=== PATIENT | male | born 1955 | race Caucasian/White ===

== ENCOUNTER 2023-08-14 09:32 | Outpatient (OUT) | payer MEDICARE, SELFPAY ==
--- NOTE | 2023-08-14 09:38 | CT_ITS ---
[address] [address] Patient Name: CONNIE UREÑA MRN: [id number] date: 1955 Sex: M Assigned Patient Location: CT Current Patient Location: Accession/Order Number: [id number] Exam Date: 08/14/2023 09:43 Report Date: 08/15/2023 06:33 At the request of: RAYSHAWN DE LEON Procedure: CT lung screening low-dose EXAMINATION: CT lung screening low-dose HISTORY: Cigarette Nicotine Dependence F17.210 COMPARISON: No relevant comparison available. TECHNIQUE: Axial, Coronal, and Sagittal images were created without the administration of IV contrast material. Dose reduction techniques were achieved by using automated exposure control and/or adjustment of mA and/or kV according to patient size and/or use of iterative reconstruction technique. FINDINGS: LUNGS: No visible pulmonary disease. PLEURA: No mass, effusion, or pneumothorax. VASCULATURE: No abnormality. ADAMARIS: No mass or pathologic adenopathy. MEDIASTINUM: No mass or pathologic adenopathy. CARDIAC: No enlargement, pericardial thickening, or pericardial effusion. Coronary Artery calcifications: AORTA: No aneurysm or dissection. CHEST WALL: No mass or axillary adenopathy BONES: No bone lesion or fracture. LIMITED ABDOMEN: Small, nodular liver. Large hiatal hernia. Limited images of the upper abdomen. OTHER: Negative. CT/CT lung screening low-dose IMPRESSION: 1. Lung-RADS Category 1 Negative. No nodules and definitely benign nodules. Continue annual screening with LDCT in 12 months. 2. Nodular liver suggestive of cirrhosis. 3. Large hiatal hernia. Electronically authenticated by: FELICIANO SAM Date: 08/15/2023 06:33
== END 2023-08-14 09:33 | disposition home or self-care (01) ==
LOC: CT 09:32
PROVIDERS: PCP Internal Medicine; Visit Provider Internal Medicine
DX: F17.210 Nicotine dependence, cigarettes, uncomplicated (principal); K44.9 Diaphragmatic hernia without obstruction or gangrene
CPT/HCPCS: 71271

== ENCOUNTER 2023-08-19 09:02 | Outpatient (OUT) | payer MEDICARE, SELFPAY ==
--- NOTE | 2023-08-19 09:05 | ECG_ITS ---
[facility] Test Date: 2023-08-19 Pat Name: Sulaiman Nava Department: Room: - Gender: Male Ems Instructor: : 1955 Requested By: SATHISH DAMON Order Number: [id number] Reading MD: DARIUSZ PETERS Measurements Intervals Boyds Rate: 63 P: 64 MT: 137 QRS: 11 QRSD: 93 T: 38 QT: 401 QTc: 412 Interpretive Statements SINUS RHYTHM WITH SINUS ARRHYTHMIA No previous ECG available for comparison Electronically Signed On 08-19-2023 18:35:42 EDT by DARIUSZ PETERS
[2023-08-19 10:11] LABS: Basophils Percent Auto 0.7 % (0.2-2.0); Eosinophils Absolute Auto 0.1 10^3/uL (0.0-0.7); Eosinophils Percent Auto 1.1 % (0.9-7.0); Hematocrit 40.7 % (42.0-54.0); Immature Granulocytes Abs Auto 0.02 10^3/uL (0.00-0.03); Immature Granulocytes Pct Auto 0.4 % (0.0-0.5); Lymphocytes Absolute Auto 0.9 10^3/uL (1.2-3.8); Lymphocytes Percent Auto 18.6 % (20.5-60.0); Mean Corpuscular HGB Conc 34.4 g/dL (29.9-35.2); Mean Corpuscular Hemoglobin 32.9 pg (25.9-34.0); Mean Corpuscular Volume 95.8 fL (80.0-94.0); Mean Platelet Volume 11.2 fL (9.5-13.5); Monocytes Absolute Auto 0.7 10^3/uL (0.3-0.8); Neutrophils Absolute Auto 2.9 10^3/uL (1.4-6.5); Neutrophils Percent Auto 63.2 % (43.0-75.0); Platelet Count 99 10^3/uL (150-450); Red Blood Count 4.25 10^6/uL (4.70-6.10); Red Cell Distribution Width 13.5 % (11.0-15.0); White Blood Count 4.6 10^3/uL (4.0-11.0)
[2023-08-19 10:18] LABS: Anion Gap 12.1; BUN Creatinine Ratio 8.3; Calcium 9.6 mg/dL (8.5-10.1); Carbon Dioxide 27.9 mmol/L (21.0-32.0); Chloride 100 mmol/L (98-107); Estimated GFR (African America >60 (>=60); Estimated GFR (Non-African Ame >60 (>=60); Glucose 128 mg/dL (74-106); Sodium 136 mmol/L (136-145)
[2023-08-19 10:23] LABS: Alanine Aminotransferase 67 U/L (16-63); Albumin Globulin Ratio 0.6; Albumin Level 3.3 g/dL (3.4-5.0); Alkaline Phosphatase 102 U/L (46-116); Aspartate Amino Transferase 84 U/L (15-37); Bilirubin Direct 0.3 mg/dL (0.0-0.2); Bilirubin Total 0.7 mg/dL (0.2-1.0); Globulin 5.1 g/dL; Total Protein 8.4 g/dL (6.4-8.2)
[2023-08-19 11:01] LABS: INR 1.04; Partial Thromboplastin Time 27.6 sec (22.3-36.2)
== END 2023-08-19 09:03 | disposition home or self-care (01) ==
LOC: PST 09:03
PROVIDERS: PCP Internal Medicine; Visit Provider Otolaryngology
DX: Z01.810 Encounter for preprocedural cardiovascular examination (principal); Z01.812 Encounter for preprocedural laboratory examination; H69.93 Unspecified Eustachian tube disorder, bilateral; H65.93 Unspecified nonsuppurative otitis media, bilateral; D64.9 Anemia, unspecified; K76.9 Liver disease, unspecified
CPT/HCPCS: 80048; 80076; 85025; 85610; 85730; 93005

== ENCOUNTER 2023-08-20 17:48 | Emergency (ER) | payer MEDICARE, SELFPAY ==
[2023-08-20 17:52] VITALS: BP 152/86; PULSE 71; TEMP 36.4; O2SAT 97; BMI 23.6
--- NOTE | 2023-08-20 17:58 | PC.NURSE ---
PT CONCERNED FOR BLOOD CLOT IN LUE R/T TO [facility] FROM LAB DRAW YESTERDAY
--- NOTE | 2023-08-20 18:07 | ED.GENADUL1 ---
HPI HPI - General Adult General Chief complaint: Extremity Problem, Nontraumatic Stated complaint: CONCERN POSS BLOOD CLOT ARM Time Seen by Provider: 08/20/23 17:54 Source: patient Mode of arrival: walk-in Limitations: other Limitations comment: HEARING LOSS. History of Present Illness HPI narrative: 67-year-old male to the emergency department chief complaint of bruise on his left AC after a blood draw. Patient reports that he was phlebotomized yesterday. He reports that they used a small butterfly needle however he has never had a bruise like this before afterwards. His is concerned it may be a blood clot. He has no complaints. There is no pain at the site. There is no arm swelling. Related Data Home Medications ?Medication ?Instructions ?Recorded ?Confirmed albuterol sulfate 90 mcg/actuation 2 inh inhalation Q6H PRN shortness 08/19/23 08/19/23 aerosol inhaler of breath or wheezing amlodipine 5 mg tablet 5 mg PO DAILY 08/19/23 08/19/23 omeprazole 20 mg capsule,delayed 20 mg PO DAILY 08/19/23 08/19/23 release Allergies Allergy/AdvReac Type Severity Reaction Status Date / Time No Known Drug Allergies Allergy Verified 08/19/23 09:17 Opioid HPI Opioid Management Most Recent Opioid Data: No Data to Display Review of Systems ROS Status of ROS 10 or more systems reviewed and unremarkable except as noted in history and below [facility] Medical History (Updated 08/20/23 @ 18:03 by Joshua Bridges MD) Hearing loss ?H91.90 - Unspecified hearing loss, unspecified ear (ICD-10) Alcohol dependence ?F10.20 - Alcohol dependence, uncomplicated (ICD-10) Poor historian ?Z78.9 - Other specified health status (ICD-10) Hiatal hernia ?K44.9 - Diaphragmatic hernia without obstruction or gangrene (ICD-10) Osteoarthritis ?M19.90 - Unspecified osteoarthritis, unspecified site (ICD-10) Anemia ?D64.9 - Anemia, unspecified (ICD-10) Insomnia ?G47.00 - Insomnia, unspecified (ICD-10) Anxiety ?F41.9 - Anxiety disorder, unspecified (ICD-10) Depression ?F32.A - Depression, unspecified (ICD-10) Bronchiectasis ?J47.9 - Bronchiectasis, uncomplicated (ICD-10) Panlobular emphysema ?J43.1 - Panlobular emphysema (ICD-10) Allergic rhinitis ?J30.9 - Allergic rhinitis, unspecified (ICD-10) Nasal obstruction ?J34.89 - Other specified disorders of nose and nasal sinuses (ICD-10) Chronic pansinusitis ?J32.4 - Chronic pansinusitis (ICD-10) Hepatitis C ?B19.20 - Unspecified viral hepatitis C without hepatic coma (ICD-10) Cirrhosis ?K74.60 - Unspecified cirrhosis of liver (ICD-10) Dysfunction of both eustachian tubes ?H69.93 - Unspecified Eustachian tube disorder, bilateral (ICD-10) GERD (gastroesophageal reflux disease) ?K21.9 - Gastro-esophageal reflux disease without esophagitis (ICD-10) Hypertension ?I10 - Essential (primary) hypertension (ICD-10) Edentulous ?K08.109 - Complete loss of teeth, unspecified cause, unspecified class (ICD-10) Cataract ?H26.9 - Unspecified cataract (ICD-10) Surgical History (Updated 08/19/23 @ 09:28 by Kika Montenegro NP) S/P cataract extraction and insertion of intraocular lens ?Z98.49 - Cataract extraction status, unspecified eye (ICD-10) ?Z96.1 - Presence of intraocular lens (ICD-10) History of cholecystectomy ?Z90.49 - Acquired absence of other specified parts of digestive tract (ICD-10) History of appendectomy ?Z90.49 - Acquired absence of other specified parts of digestive tract (ICD-10) History of tonsillectomy ?Z90.89 - Acquired absence of other organs (ICD-10) Family History (Updated 08/19/23 @ 09:28 by Kika Montenegro NP) Other Family history of Alzheimer's disease Family history of heart disease Social History (Updated 08/19/23 @ 09:20 by Kika Montenegro NP) Within the past year, how often did you have a drink containing alcohol: 4 or more times a week Within the past year, how many standard drinks containing alcohol did you have on a typical day: 10 or more Smoking status: Current every day smoker What tobacco products do you use: cigarettes Packs per day: 1 Years smoked: 50 Smoking pack-years: 50.00 Non-prescribed substance use: denies use Highest level of school completed/degree received: high school graduate Exam Narrative Exam Narrative: VITALS: I have reviewed the triage vital signs. GENERAL: Well developed, well appearing adult in no acute distress. NEURO: Alert and oriented. Moves all extremities. Face is symmetric and expressive. EYES: PERRL. No scleral icterus or conjunctival injection. No discharge. HENT: Normocephalic, atraumatic. Hearing is grossly intact. Nares grossly patent and without discharge. Mucous membranes moist. NECK: No JVD. Patient moves neck without restriction. EXTREMITIES: Symmetric muscle bulk. No joint swelling. No clubbing, cyanosis, or deformity. SKIN: Warm and dry. Normal turgor. No rash or lesions appreciated. Quarter sized area of ecchymosis to the left AC. No tenderness or swelling throughout the arm. PSYCH: Mood, affect, and interaction is appropriate to the setting. Constitutional Vital Signs, click to edit/add: Last Vital Signs Temp 97.6 F 08/20/23 17:52 Pulse 08/20/23 17:52 Resp 08/20/23 17:52 BP 152/86 H 08/20/23 17:52 Pulse Ox 97 08/20/23 17:52 O2 Del Method Room Air 08/20/23 17:52 Course Vital Signs Vital signs: Vital Signs Temperature 97.6 F 08/20/23 17:52 Pulse Rate 08/20/23 17:52 Respiratory Rate 18 08/20/23 17:52 Blood Pressure 152/86 H 08/20/23 17:52 Pulse Oximetry 97 08/20/23 17:52 Oxygen Delivery Method Room Air 08/20/23 17:52 Temperature 97.6 F 08/20/23 17:52 Pulse Rate 08/20/23 17:52 Respiratory Rate 18 08/20/23 17:52 Blood Pressure 152/86 H 08/20/23 17:52 Pulse Oximetry 97 08/20/23 17:52 Oxygen Delivery Method Room Air 08/20/23 17:52 Medical Decision Making MDM Narrative Medical decision making narrative: Well-appearing 67-year-old male worried about a DVT in his arm due to a blood draw. Small area of ecchymosis. There is no evidence of DVT. Discussed expectant management. Return precautions were discussed. All questions were answered. Patient was discharged home. Discharge Plan Discharge Stand Alone Forms: Portal Instructions Chief Complaint: Extremity Problem, Nontraumatic Clinical Impression: Ecchymosis Patient Disposition: Home, Self-Care Time of Disposition Decision: 18:03 Condition: Good Prescriptions / Home Meds: No Action albuterol sulfate 90 mcg/actuation HFA aerosol inhaler 2 inh INHALATION Q6H PRN (Reason: shortness of breath or wheezing) amlodipine 5 mg tablet 5 mg PO DAILY omeprazole 20 mg capsule,delayed release(DR/EC) 20 mg PO DAILY Print Language: Romanian Instructions: Ecchymosis (ED) Referrals: RAYSHAWN DE LEON [Primary Care Provider] - 1 week
== END 2023-08-20 18:08 | disposition home or self-care (01) ==
PROVIDERS: Emergency Provider Student in an Organized Health Care Education/Training Program; PCP Internal Medicine
DX: R58 Hemorrhage, not elsewhere classified (principal); F17.210 Nicotine dependence, cigarettes, uncomplicated
CPT/HCPCS: 99281

== ENCOUNTER 2023-09-01 10:58 | Day surgery (SDC) | payer MEDICARE, SELFPAY ==
[2023-08-19 09:43] VITALS: BP 168/92; PULSE 70; TEMP 36.4; O2SAT 96; BMI 23.6
[2023-09-01] VITALS (12 sets, daily range): BP systolic 122–172; BP diastolic 65–86; PULSE 71–93; TEMP 36.1–36.6; O2SAT 90–98; BMI 23.9
--- NOTE | 2023-09-01 | OP_ITS ---
OPERATION DATE: 09/01/2023 SURGEON: Gayla Ignacio M.D. PREOPERATIVE DIAGNOSIS: Bilateral mixed hearing loss and eustachian tube dysfunction. POSTOPERATIVE DIAGNOSIS: Bilateral mixed hearing loss and eustachian tube dysfunction. PROCEDURE: Bilateral myringotomy and tubes and nasal endoscopy. ANESTHESIA: General endotracheal COMPLICATIONS: None. FINDINGS: Bilateral severe tympanic membrane retraction with bilateral stapediopexy and left incus erosion. No significant nasopharyngeal pathology evident on nasal endoscopy. INDICATIONS: This 67-year-old man presented with evidence of chronic eustachian tube dysfunction. Because of the severity of his tympanic membrane retraction, decision was made to proceed directly to placement of tympanostomy tubes. Nasal endoscopy was performed to ensure that there was no nasopharyngeal carcinoma or lymphoma that may have precipitated his eustachian tube dysfunction. PROCEDURE: Patient identified in the holding area and taken back to the OR where he was placed in the supine position. After induction of general endotracheal anesthesia, Afrin soaked pledgets were placed in each side of the nose. The right ear was then approached with the otomicroscope and an anterior radial myringotomy was performed. A modified Abhilash?s T-tube was folded and inserted in the middle ear using microdissection. Attention was turned to the left ear and the same procedure performed. Attention was then turned to the nose. The Afrin pledgets were removed and a zero degree nasal endoscope was used to visualize the nasopharynx bilaterally and no significant pathology was identified. Patient was then awakened and taken to the recovery room in good condition. DION
--- OUTSIDE RECORDS SUMMARY | 2023-09-01 11:13 | XMS_ITS | CCD ---
Author Organization [facility] Care Team Providers Care Content Producer Name Role Phone HALEY, DR TABARES Admitting Unavailable HALEY, DR TABARES Attending Unavailable HALEY, DR TABARES Primary Care Unavailable HALEY, DR TABARES Consulting Unavailable KACI, DR MARIE Delgado Consulting Unavailable HALEY, DR TABARES Admitting Unavailable HALEY, DR TABARES Attending Unavailable HALEY, DR TABARES Primary Care Unavailable HALEY, DR TABARES Consulting Unavailable BETHEBCAROLINA, DR FELICIANO Aviles Consulting Unavailable LEVI MALDONADO Attending Unavailable ERICA, LEVI Medina Attending Unavailable RAYSHAWN DE LEON Attending Unavailable HALEY, RAYSHAWN Gregory Attending Unavailable RAYSHAWN DE LEON Attending Unavailable TIMMISSATHISH Attending Unavailable LUISSARAH Attending Unavailable ERICA, LEVI Medina Attending Unavailable Problems Active Problems Problem Classification Problem Date Documented Da te Episodic/Chronic Other lower respiratory disease (4 sources) Other nonspecific abnormal finding of lung field; Translations: [OTH NONSPECIFIC ABN FIND LNG FIELD] Onset: 11-26-2021 Episodic Substance-related disorders (4 sources) Nicotine dependence, cigarettes, uncomplicated; Translations: [NICOTINE DEPEND CIGARETTES UNCOMP] Onset: 08-19-2021 Chronic Past or Other Problems Problem Classification Problem Date Documented Da te Episodic/Chronic Other screening for suspected conditions (not mental disorders or infectious disease) (1 source) Encounter for screening for malignant neoplasm of respiratory organs; Translations: [ENC SCREEN MALIG NEOPLASM RESP ORGN] Onset: 08-21-2021 Episodic Results Test Name Value Interpretation Reference Range Facil ity CREATININEon 11-26-2021 Creatinine [Mass/Vol] 1.11 mg/dL Normal 0.70-1.30 [facility] Comment on above: Performed By: #### C PRICE #### [facility] [address] [place], [place] [address] Dr. Joao Servin EGFR-AF [place]LANDER >60 Normal >=60 [facility] Comment on above: Performed By: #### C PRICE #### [facility] [address] [place], [place] [address] Dr. Joao Servin EGFR-NON AF [place]ER >60 Normal >=60 [facility] Comment on above: Performed By: #### C PRICE #### [facility] [address] [place], [place] [address] CHEST W CONon 11-26-2021 CT CHEST W CON EXAMINATION: CT CHES T W CON HISTORY: Lung field abnormal COMPARISON: CT chest 08/19/2021 TECHNIQUE: Multi-planar CT images were created with IV contrast. Axial, Coronal, and Sagittal images. Dose reduction techniques were achieved by using automated exposure control and/or adjustment of mA and/or kV according to patient size and/or use of iterative reconstruction technique. FINDINGS: LUNGS: Clear to previously seen right basilar infiltrates. Mild bronchiectasis and mild emphysematous changes. No new or suspicious nodules. PLEURA: No mass, effusion, or pneumothorax. VASCULATURE: No abnormality. ADAMARIS: No mass or adenopathy. MEDIASTINUM: No mass or adenopathy. CARDIAC: No enlargement, pericardial thickening, or significant calcification. AORTA: No aneurysm or dissection. CHEST WALL: No mass or axillary adenopathy. BONES: No bone lesion or fracture. LIMITED ABDOMEN: Marked nodularity of the liver suggestive of cirrhosis. Large hiatal hernia. Limited images of the upper abdomen. OTHER: Negative. IMPRESSION: 1. Clearing of previously seen pulmonary infiltrates. No suspicious pulmonary findings. 2. Mild bronchiectasis and mild chronic emphysematous changes. 3. Markedly nodular liver suggestive of cirrhosis. Electronically authenticated by: FELICIANO SAM Date: 2021-11-26 20:09 Normal [facility] CT LUNG CANCER SCREENINGon 0 08-19-2021 CT LUNG CANCER SCREENING EXAMINATION: CT LUNG CANCER SCREENING HISTORY: Tobacco dependence caused by cigarettes COMPARISON: No relevant comparison available. TECHNIQUE: Axial, Coronal, and Sagittal images were created without the administration of IV contrast material. Dose reduction techniques were achieved by using automated exposure control and/or adjustment of mA and/or kV according to patient size and/or use of iterative reconstruction technique. FINDINGS: LUNGS: Mild centrilobular and paraseptal emphysema. Focal infiltrate identified in the medial basilar segment of the right lower lobe measuring 2.3 x 1.2 cm axial image 1:30. A few scattered punctate pulmonary nodules, stable. No new significant pulmonary nodule or mass. PLEURA: No mass, effusion, or pneumothorax. VASCULATURE: No abnormality. ADAMARIS: No mass or pathologic adenopathy. MEDIASTINUM: No mass or pathologic adenopathy. CARDIAC: No enlargement or pericardial effusion. Mild coronary atherosclerosis AORTA: No aneurysm or dissection. CHEST WALL: No mass or axillary adenopathy BONES: No bone lesion or fracture. LIMITED ABDOMEN: Small nodular liver suggesting cirrhosis. Large hiatal hernia. OTHER: Negative. IMPRESSION: New focal 2.3 cm infiltrate medial basilar segment of the right lower lobe. Short interval follow-up in 3 months is recommended to document stability/resolution Cirrhosis Large hiatal hernia LUNG SCREENING: Lung-RADS Category 3- Probably benign. Probably benign finding(s)- short term follow up suggested; includes nodules with a low likelihood of becoming a clinically active cancer. Six month LDCT. Electronically authenticated by: MARIE CLEMONS Date: 2021-08-19 14:25 Normal [facility] Coding Summary.on 05-03-2019 Coding Summary. CODING DATE: 05/03/2019 FINAL [facility] STATUS: Home (Routine DC) PAYOR: Medicare APC DESCRIPTION 5522 Level 2 Imaging without Contrast ADMIT DX: REASON FOR VISIT DX: J32.4 Chronic pansinusitis FINAL DX: PRINCIPAL: J32.4 Chronic pansinusitis SECONDARY: PYMT PROC APC STAT DESCRIPTION DOCTOR NAME DATE NOTE: The code number assigned matches the documented diagnosis and / or procedure in the patient's chart. However, the narrative phrase printed from the coding software may appear abbreviated, or result in slightly different terminology. Coded By: Liana Moraes CphT Date Saved: 05/03/2019 09:11 am Normal [facility] CT Maxillofacial w/o Contras ton 05-02-2019 CT Maxillofacial w/o Contrast Exam Date/Time: 05/02/2019 11:10 EDT Reason for Exam: CHRONIC SINUSITIS Report IMPRESSION: MINIMAL MUCOSAL THICKENING. NO EVIDENCE OF ACUTE SINUSITIS. CLINICAL HISTORY: CHRONIC SINUSITIS. COMMENT: Unenhanced images were obtained. There is minimal mucosal thickening involving both maxillary and ethmoid sinuses. Both frontal sinuses are small, especially the right. The paranasal sinuses are otherwise aerated and unremarkable. No fluid level is noted. There is no bone destruction. The ostiomeatal complexes of both maxillary sinuses are aerated and clear. The bony nasal septum is midline. Of incidental note, at the level of the middle nasal turbinates, there is focal expansion of the right and left nasal cavities laterally, on a developmental basis. There is mild hypertrophy or swelling of the left inferior nasal turbinate. The nasal cavities are otherwise unremarkable. All CT scans at this facility use dose modulation, iterative reconstruction, and/or weight based dosing when appropriate to reduce radiation dose to as low as reasonably achievable. FINAL REPORT Dictated: 05/02/2019 11:43 am Narendra Downing M.D. Signed (Electronic Signature): 05/02/2019 11:43 am Signed by: Narendra Downing M.D. Transcribed by: KATELYNN Technologist: Jo AMARO [facility] Encounters Encounter Date Encounter Type Care Provider Facility Start: 08-27-2023 End: 08-27-2023 ambulatory LEVI MALDONADO Not Available Start: 08-12-2023 End: 08-12-2023 ambulatory SARAH SMITH Not Available Start: 08-12-2023 End: 08-12-2023 ambulatory SATHISH Vaughn MARISOL Not Available Start: 08-10-2023 End: 08-10-2023 ambulatory RAYSHAWN DE LEON Not Available Start: 07-22-2023 End: 07-22-2023 ambulatory RAYSHAWN DE LEON Not Available Start: 07-15-2023 End: 07-15-2023 ambulatory RAYSHAWN DE LEON Not Available Start: 03-05-2023 End: 03-05-2023 ambulatory LEVI MALDONADO Not Available Start: 02-17-2023 End: 02-17-2023 ambulatory LEVI MALDONADO Not Available Start: 11-26-2021 End: 11-27-[address] RAYSHAWN DE LEON Facility:[facility] Start: 08-19-2021 End: [address] RAYSHAWN DE LEON Facility:[facility] Payers Date Payer Category Payer Unknown [id number] 1955 Unknown [id number] 2.16.84 [id number] 1955 Unknown [id number] 2.16.84 [id number] 1955 Unknown [id number] 2.16.84 [id number] 1955 Unknown [id number] 2.16.84 [id number] 1955 Unknown [id number] 2.16.84 [id number] 1955 Unknown [id number] 2.16.84 [id number] 1955 Unknown [id number] 2.16.84 [id number] 1955 Unknown [id number] 2.16.84 [id number] 1955 Unknown [id number] 2.16.84 [id number] 1955 Unknown [id number] 2.16.84 [id number] Summary Purpose Family History No Family History Records FoundNo Family History Records FoundNo Family History Records Found Advance Directives No Advanced Directives Records FoundNo Advanced Directives Records FoundNo Advanced Directives Records Found Additional Source Comments (unrecognized sect ion and content) No Status Records FoundNo Status Records FoundNo Status Records Found INFORMATION SOURCE (unrecogn ized section and content) DATE CREATED AUTHOR 06/25/2019 [facility] DATE CREATED AUTHOR AUTHOR'S ORGANIZ ATION 11/30/2021 [facility] DATE CREATED AUTHOR AUTHOR'S ORGANIZ ATION 08/31/2023 [facility] FOR RECORDS PERTAINING TO PATIENTS WHO ARE OR HAVE BEEN ENROLLED IN A CHEMICAL DEPENDENCY/SUBSTANCEABUSE PROGRAM, SOME INFORMATION MAY BE OMITTED. This clinical summary was aggregated from multiple sources. Caution should be exercised in using it in the provision of clinical care. This summary normalizes information from multiple sources, and as a consequence, information in this document may materially change the coding, format and clinical context of patient data. In addition, data may be omitted in some cases. CLINICAL DECISIONS SHOULD BE BASED ON THE PRIMARY CLINICAL RECORDS. [facility]. provides no warranty or guarantee of the accuracy or completeness of information in this document.
[2023-09-01] MEDS: LACTATED RINGER'S SOLUTION 1,000 ML 50 ML IV (11:28)
[2023-09-01] MEDS: OXYMETAZOLINE HCL 0.05% NASAL SPRAY 30 SPRAY NS (12:37)
--- NOTE | 2023-09-01 13:15 | PC.NURSE ---
PATIENT COUGHING SINCE HE ARRIVED TO PACU. BREATHNG TREATMENT WAS ORDERED AND HE IS CURRENTLY TAKING BREATHING TREATMENT.
[2023-09-01] MEDS: ALBUTEROL SULFATE 2.5 MG/3 ML VIAL NEB IH (13:30)
== END 2023-09-01 13:59 | disposition home or self-care (01) ==
PROVIDERS: PCP Internal Medicine; Visit Provider Otolaryngology
PROC: (CPT 31231; principal; 2023-09-01 12:00)
PROC: (CPT 31231; 2023-09-01 12:00)
DX: H69.93 Unspecified Eustachian tube disorder, bilateral (principal); H65.93 Unspecified nonsuppurative otitis media, bilateral; H90.6 Mixed conductive and sensorineural hearing loss, bilateral; Z90.49 Acquired absence of other specified parts of digestive tract; F17.210 Nicotine dependence, cigarettes, uncomplicated; I10 Essential (primary) hypertension; K21.9 Gastro-esophageal reflux disease without esophagitis; K74.60 Unspecified cirrhosis of liver; B19.20 Unspecified viral hepatitis C without hepatic coma; K44.9 Diaphragmatic hernia without obstruction or gangrene; M19.90 Unspecified osteoarthritis, unspecified site
CPT/HCPCS: 31231; 69436; 36415; 94640; J2405; J2704; J3010

== ENCOUNTER 2024-05-28 09:04 | Outpatient (OUT) | payer MEDICARE, SELFPAY ==
--- NOTE | 2024-05-28 | US_ITS ---
The [address] [address] Patient Name: CONNIE UREÑA MRN: [id number] date: 1955 Sex: M Assigned Patient Location: US Current Patient Location: Accession/Order Number: [id number] Exam Date: 05/30/2024 09:42 Report Date: 05/30/2024 09:44 At the request of: LEVI MALDONADO Procedure: US right upper quadrant LIMITED ABDOMINAL ULTRASOUND WITH ASSESSMENT OF RIGHT UPPER QUADRANT HISTORY: Elevated liver enzymes COMPARISON: None Negative ultrasound Evans's sign reported. COMMON BILE DUCT: Normal caliber. No intraluminal abnormality. LIVER CONTOUR: Cirrhosis. LIVER PARENCHYMA: Hepatic steatosis HEPATIC LESION: None INTRAHEPATIC BILIARY DUCTAL DILATATION No ductal dilatation identified. Cholecystectomy Pancreas: Limited assessment of pancreatic tail. No gross abnormality PORTAL VEIN: Normal blood flow. Liver size: Normal No RIGHT hydronephrosis identified. US/US right upper quadrant IMPRESSION: Liver cirrhosis. Hepatic steatosis. No biliary duct dilatation. Cholecystectomy Impression dictated by: Gary Alex M.D.05/30/2024 9:44 AM Dictation Location: [place] [address] Electronically authenticated by: [id number] Y Date: 05/30/2024 09:44
--- OUTSIDE RECORDS SUMMARY | 2024-05-28 09:07 | XMS_ITS | CCD ---
Author Organization [facility] Inform ion Partnership [facility] Care Team Providers Care Washateria Attendant Name Role Phone HALEY, DR TABARES Admitting Unavailable HALEY, DR TABARES Attending Unavailable HALEY, DR TABARES Primary Care Unavailable HALEY, DR TABARES Consulting Unavailable KACI, DR MARIE Delgado Consulting Unavailable HALEY, DR TABARES Admitting Unavailable HALEY, DR TABARES Attending Unavailable HALEY, DR TABARES Primary Care Unavailable HALEY, DR TABARES Consulting Unavailable FLACO, DR FELICIANO Aviles Consulting Unavailable Jeevna Bertrand MD Unavailable Jeevan Bertrand MD Primary Care Provider [phone] Joesph CONTACT LENS POLISHER, Lala Unavailable Mobile CONTACT LENS POLISHER, Anamika Unavailable Unavailable LEVI RAMOS Attending Unavailable JEEVAN BERTRAND Attending Unavailable JEEVAN BERTRAND Attending Unavailable JEEVAN BERTRAND Attending Unavailable GAYLA DAMON Attending Unavailable SARAH SMITH Attending Unavailable LEVI RAMOS Attending Unavailable GAYLA DAMON Attending Unavailable Medications Current Medications Medication Drug Class(es) Dates Sig (Normalized) Sig (Original) [id number] 200 actuat albuterol 0.09 mg/actuat metered dose inhaler (7 sources) beta2-Adrenergic Agonist Start: 08-10-2023 take 1 puff(s) by inhalation every four hours for wheezing albuterol HFA 90 mcg/act inhaler Indications: Panlobular emphysema (CMS/HCC) Inhale 1 puff every 4 (four) hours if needed for wheezing or shortness of breath 18 g 2 08/10/2023 Active amLODIPine 5 mg oral tablet (10 sources) Dihydropyridine Calcium Channel Chandler Start: 10-09-2022 End: 05-04-2025 take 1 tablet by mouth once daily amLODIPine (Norvasc) 5 MG tablet Indications: Hypertension, unspecified type (CMS/HCC) Take 1 tablet (5 mg) by mouth Daily 90 tablet 3 05/04/2024 05/04/2025 Active cloNIDine hydrochloride 0.1 mg oral tablet (9 sources) Central alpha-2 Adrenergic Agonist Start: 04-27-2023 End: 05-04-2025 take 1 tablet by mouth every hour for hypertension cloNIDine (Catapres) 0.1 MG tablet Indications: Hypertension, unspecified type (CMS/HCC) Take 1 tablet (0.1 mg) by mouth every 1 (one) hour if needed for high blood pressure (SBP > 170) 60 tablet 11 05/04/2024 05/04/2025 Active ofloxacin 3 mg/ml otic solution (2 sources) Quinolone Antimicrobial Start: 09-30-2023 End: 10-10-2023 ofloxacin (Floxin) 0.3 % otic solution Indications: ETD (Eustachian tube dysfunction), bilateral Administer 4 drops into each ear in the morning and 4 drops before bedtime. Do all this for 10 days. 10 mL 09/30/2023 10/10/2023 Active phenylephrine hydrochloride 10 mg/ml nasal solution (7 sources) alpha-1 Adrenergic Agonist Start: 07-22-2023 phenylephrine (Neel-Synephrine) 1 % nasal spray Indications: Non-recurrent acute suppurative otitis media of both ears without spontaneous rupture of tympanic membranes Administer 2 sprays into each nostril every 4 (four) hours if needed for congestion for up to 25 days Do not use for more than 3 days. 15 mL 1 07/22/2023 Active Problems Active Problems Problem Classification Problem Date Documented Date Episodic/Chronic Anxiety disorders (9 sources) Mixed anxiety and depressive disorder; Translations: [Other specified anxiety disorders] Onset: 09-11-2022 09-11-2022 Chronic Chronic obstructive pulmonary disease and bronchiectasis (16 sources) Bronchiectasis; Translations: [Bronchiectasis, uncomplicated] Onset: 09-11-2022 09-11-2022 Chronic Deficiency and other anemia (2 sources) Iron deficiency anemia; Translations: [Other iron deficiency anemias] 05-04-2024 Episodic Esophageal disorders (9 sources) Gastroesophageal reflux disease; Translations: [Gastro-esophageal reflux disease without esophagitis] Onset: 01-26-2008 09-11-2022 Chronic Essential hypertension (12 sources) Hypertensive disorder; Translations: [Essential (primary) hypertension] Onset: 10-06-2022 10-22-2023 Chronic Hepatitis (9 sources) Chronic hepatitis C; Translations: [Chronic viral hepatitis C] Onset: 09-11-2022 09-11-2022 Chronic Miscellaneous mental health disorders (2 sources) Primary insomnia; Translations: [Primary insomnia] 05-04-2024 Chronic Osteoarthritis (9 sources) Degenerative joint disease involving multiple joints; Translations: [Polyosteoarthritis, unspecified] Onset: 01-26-2008 09-11-2022 Chronic Other liver diseases (11 sources) Cirrhosis of liver; Translations: [Unspecified cirrhosis of liver] Onset: 08-22-2011 09-11-2022 Chronic Other liver diseases (2 sources) Elevated liver enzymes level; Translations: [Abnormal levels of other serum enzymes] 05-04-2024 Episodic Other lower respiratory disease (4 sources) Other nonspecific abnormal finding of lung field; Translations: [OTH NONSPECIFIC ABN FIND LNG FIELD] Onset: 11-26-2021 Episodic Other screening for suspected conditions (not mental disorders or infectious disease) (7 sources) Encounter for screening for malignant neoplasm of respiratory organs; Translations: [Patient encounter status] Onset: 08-21-2021 05-04-2024 Episodic Other upper respiratory disease (7 sources) Allergic rhinitis; Translations: [Other allergic rhinitis] Onset: 09-11-2022 09-11-2022 Chronic Other upper respiratory infections (7 sources) Chronic pansinusitis; Translations: [Chronic pansinusitis] Onset: 09-11-2022 09-11-2022 Chronic Retinal detachments; defects; vascular occlusion; and retinopathy (9 sources) Cystoid macular degeneration, left eye; Translations: [Cystoid macular degeneration] Onset: 09-11-2022 09-11-2022 Chronic Substance-related disorders (15 sources) Nicotine dependence, cigarettes, uncomplicated; Translations: [Nicotine dependence] Onset: 08-19-2021 Chronic Past or Other Problems Problem Classification Problem Date Documented Da te Episodic/Chronic Deficiency and other anemia (7 sources) Anemia; Translations: [Anemia, unspecified] Onset: 08-21-2010 09-11-2022 Episodic Other upper respiratory disease (7 sources) Nasal obstruction; Translations: [Other specified disorders of nose and nasal sinuses] Onset: 09-11-2022 09-11-2022 Episodic Otitis media and related conditions (16 sources) Dysfunction of bilateral eustachian tubes; Translations: [Unspecified Eustachian tube disorder, bilateral] Onset: 08-12-2023 08-12-2023 Episodic Residual codes; unclassified (7 sources) Insomnia; Translations: [Insomnia, unspecified] Onset: 09-11-2022 09-11-2022 Episodic Results Test Name Value Interpretation Reference Range Facil ity CREATININEon 11-26-2021 Creatinine [Mass/Vol] 1.11 mg/dL Normal 0.70-1.30 [facility] Comment on above: Performed By: #### C PRICE #### [facility] [address] [place] [address] Dr. Joao Servin EGFR-AF VENEZUELAN >60 Normal >=60 [facility] Comment on above: Performed By: #### C PRICE #### [facility] [address] [place] [address] Dr. Joao Servin EGFR-NON AF VENEZUELAN >60 Normal >=60 [facility] Comment on above: Performed By: #### C PRICE #### [facility] [address] [place] [address] CHEST W CONon [...] by: FELICIANO SAM Date: 2021-11-26 20:09 Normal [facility] CT LUNG CANCER SCREENINGon 0 08-19-2021 CT [...] by: MARIE CLEMONS Date: 2021-08-19 14:25 Normal [facility] Coding Summary.on 05-03-2019 Coding Summary. CODING DATE: 05/03/2019 FINAL [facility] STATUS: Home (Routine DC) PAYOR: Medicare [...] Moraes CphT Date Saved: 05/03/2019 09:[address] [facility] [address] Maxillofacial w/o Contras ton 05-02-2019 [...] M.D. Transcribed by: KATELYNN Technologist: Jo AMARO [facility] Vital Signs Date Time Vital Sign Value Performing Clinician Ashleigh mei 05-04-2024 11:20-040 Body height 170.2 cm Levi Ramos NP Work Phone: [facility] 05-04-2024 11:20-0400 Body mass index (BMI) [Ratio] 24.18 kg/m2 Levi Ramos NP Work Phone: [facility] 05-04-2024 11:20-0400 Body weight 70.03 kg Levi Ramos ETHNOLOGY TEACHER Work Phone: [facility] 05-04-2024 11:20-0400 Diastolic blood pressure 82 mm[Hg] Levi Ramos ETHNOLOGY TEACHER Work Phone: [facility] 05-04-2024 11:20-0400 Heart rate 91 /min Levi Ramos ETHNOLOGY TEACHER Work Phone: [facility] 05-04-2024 11:20-0400 Respiratory rate 17 /min Levi Ramos ETHNOLOGY TEACHER Work Phone: [facility] 05-04-2024 11:20-0400 SaO2% (BldA) [Mass fraction] 97 % Levi Ramos ETHNOLOGY TEACHER Work Phone: [facility] 05-04-2024 11:20-0400 Systolic blood pressure 138 mm[Hg] Levi Ramos ETHNOLOGY TEACHER Work Phone: [facility] 09-30-2023 08:59-0400 Body height 170.2 cm Gayla Damon MD Work Phone: [facility] 09-30-2023 08:59-0400 Body mass index (BMI) [Ratio] 24.28 kg/m2 Gayla Damon MD Work Phone: [facility] 09-30-2023 08:59-0400 Body weight 70.31 kg Gayla Damon MD Work Phone: [facility] 09-30-2023 08:59-0400 Diastolic blood pressure 92 mm[Hg] Gayla Damon MD Work Phone: [facility] 09-30-2023 08:59-0400 Systolic blood pressure 161 mm[Hg] Gayla Damon MD Work Phone: [facility] Encounters Encounter Date Encounter Type Care Provider Facility Start: 05-04-2024 End: 05-04-2024 Bamboo flowsheet Levi Ramos ETHNOLOGY TEACHER Work Phone: [facility] Start: 05-04-2024 End: 05-04-2024 Bamboo flowsheet Levi Ramos ETHNOLOGY TEACHER Work Phone: [facility] Start: 05-04-2024 End: 05-04-2024 Assay of hemosiderin, quant Levi Ramos ETHNOLOGY TEACHER Work Phone: [facility] Start: 05-04-2024 End: 05-04-2024 Patient encounter procedure Levi Ramos ETHNOLOGY TEACHER Work Phone: [facility] Comment on above: Medicare annual well [facility] visit, subsequent (Primary Dx); Other iron deficiency anemia; Screening for prostate cancer; Primary hypertension (CMS/HCC); Screening for lipid disorders; Hypertension, unspecified type (CMS/HCC); Primary insomnia; Panlobular emphysema (CMS/HCC); Chronic hepatitis C without hepatic coma (CMS/HCC); 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); Gastroesophageal reflux disease without esophagitis; Generalized OA; Cigarette nicotine dependence without complication; Cystoid macular degeneration of left eye; Depression with anxiety; Routine general medical examination at health care facility; Unspecified cirrhosis of liver (CMS/HCC); Screening for colon cancer; Elevated liver enzymes Start: 05-04-2024 End: 05-04-2024 ambulatory LEVI RAMOS Not Available Start: 10-22-2023 End: 10-22-2023 Harsha Bertrand MD Work Phone: [facility] Comment on above: Hypertension, unspec ified type (CMS/HCC) Start: 09-30-2023 End: 09-30-2023 Bamboo flowsheet Gayla Damon MD Work Phone: [facility] Start: 09-30-2023 End: 09-30-2023 Bamboo flowsheet Gayla Damon MD Work Phone: [facility] Start: 09-30-2023 End: 09-30-2023 Office outpatient visit 25 minutes Gayla Damon MD Work Phone: [facility] Comment on above: ETD (Eustachian tube dysfunction), bilateral (Primary Dx) Start: 09-30-2023 End: 09-30-2023 ambulatory GAYLA H TIMMIS Not Available Start: 08-27-2023 End: 08-27-2023 ambulatory LEVI RAMOS Not Available Start: 08-12-2023 End: 08-12-2023 ambulatory SARAH SMITH Not Available Start: 08-12-2023 End: 08-12-2023 ambulatory GAYLA DAMON Not Available Start: 08-10-2023 End: 08-10-2023 ambulatory JEEVAN BERTRAND Not Available Start: 07-22-2023 End: 07-22-2023 ambulatory JEEVAN BERTRAND Not Available Start: 07-15-2023 End: 07-15-2023 ambulatory JEEVAN BERTRAND Not Available Start: 11-26-2021 End: 11-27-[address] JEEVAN BERTRAND Facility:[facility] Start: 08-19-2021 End: [address] JEEVAN BERTRAND Facility:[facility] Plan of Treatment Date Care Activity Detail Author Start: 05-04-2025 Medicare Annual Well ness (AWV) Medicare Annual Wellness (AWV) [facility] Start: 04-04-2025 Screening for malign ant neoplasm of colon [facility] Start: 08-09-2024 Medicare Annual Well ness (AWV) Medicare Annual Wellness (AWV) [facility] Start: 05-04-2024 End: 05-04-2025 CBC panel - Blood by Automated count CBC Lab Routine Other iron deficiency anemia Expected: 05/04/2024 (Approximate), Expires: 05/04/2025 [facility] Comment on above: Expected: 05/04/2024 (Approximate), Expires: 05/04/2025 Start: 05-04-2024 End: 05-04-2025 Comprehensive metabolic 2000 panel - Serum or Plasma Comprehensive metabolic panel Lab Routine Primary hypertension (CMS/HCC) Expected: 05/04/2024 (Approximate), Expires: 05/04/2025 [facility] Comment on above: Expected: 05/04/2024 (Approximate), Expires: 05/04/2025 Start: 05-04-2024 End: 05-04-2025 CT Chest for screening WO contrast CT lung screening low dose Imaging Routine Cigarette nicotine dependence without complication Expected: 05/04/2024, Expires: 05/04/2025 [facility] Comment on above: Expected: 05/04/2024 , Expires: 05/04/2025 Start: 05-04-2024 End: 05-04-2025 Lipid 1996 panel - Serum or Plasma Lipid panel Lab Routine Screening for lipid disorders Expected: 05/04/2024 (Approximate), Expires: 05/04/2025 [facility] Work Phone: Comment on above: Expected: 05/04/2024 (Approximate), Expires: 05/04/2025 Start: 05-04-2024 End: 05-04-2025 Noninvasive colorectal cancer DNA and occult blood screening [Presence] in Stool Cologuard colon cancer screening Lab Routine Screening for colon cancer Expected: 05/04/2024 (Approximate), Expires: 05/04/2025 [facility] Comment on above: Expected: 05/04/2024 (Approximate), Expires: 05/04/2025 Start: 05-04-2024 End: 05-04-2025 Prostate specific Ag [Mass/volume] in Serum or Plasma PSA Lab Routine Screening for prostate cancer Expected: 05/04/2024 (Approximate), Expires: 05/04/2025 [facility] Comment on above: Expected: 05/04/2024 (Approximate), Expires: 05/04/2025 Start: 05-04-2024 End: 05-04-2025 US Abdomen limited US LIVER Imaging Routine Chronic hepatitis C without hepatic coma (CMS/HCC) Unspecified cirrhosis of liver (CMS/HCC) Elevated liver enzymes Expected: 05/04/2024, Expires: 05/04/2025 [facility] Comment on above: Expected: 05/04/2024 , Expires: 05/04/2025 Start: 05-04-2024 End: 05-04-2024 Patient encounter procedure 05/04/2024 11:00 AM EDT Office Visit [facility] [address] [facility] [address] [place] [address] Levi Ramos NP [address] [facility] [address] [place] [address] Arrived [facility] Comment on above: Arrived Start: 12-02-2023 Pneumococcal Vaccine : 65+ Years (1 of 2 - PCV) Pneumococcal Vaccine: 65+ Years (1 of 2 - PCV) [facility] Comment on above: Postponed from 08/20 (Patient Refused) Start: 12-02-2023 End: 12-02-2023 Patient encounter procedure 12/02/2023 10:20 AM EDT Office Visit [facility] [address] [facility] [address] [place] [address] Gayla Damon MD [address] [facility] [address] [place] [address] [facility] Start: 10-11-2023 Influenza vaccination Influenza Vacc ine (#1) [facility] Start: 09-30-2023 End: 09-30-2023 Patient encounter procedure 09/30/2023 9:00 AM EDT Office Visit [facility] [address] [facility] [address] [place] [address] Gayla Damon MD [address] [facility] [address] [place] [address] Arrived [facility] Comment on above: Arrived Start: 1961 Pneumococcal Vaccine : 65+ Years (1 of 2 - PCV) Pneumococcal Vaccine: 65+ Years (1 of 2 - PCV) [facility] Start: 1955 Screening for malign ant neoplasm of colon [facility] Payers Date Payer Category Payer Medicare [employer] MEDIC[employer] ADVANTAGE [facility] MEDICARE ADVANTAGE [id number] 2021-Present [address] [place] [address] [id number] 2021 Medicare (Managed Care) [facility] AD[facility] [id number] 1959 Unknown [id number] 1954 Unknown [id number] .[id number] 1954 Unknown [id number] .[id number] 1954 Unknown [id number] .[id number] 1954 Unknown [id number] .[id number] 1954 Unknown [id number] .[id number] 1954 Unknown [id number] .[id number] 1954 Unknown [id number] .[id number] 1954 Unknown [id number] .[id number] 1954 Unknown [id number] .[id number] 1954 Unknown [id number] .[id number] Social History Date Type Detail Facility Start: 08-09-1993 Tobacco smoking status ILIS Smokes tobacco daily [facility] Start: 08-09-1993 History of tobacco use Cigarette Smoker [facility] Start: 08-10-2023 End: 05-04-2024 Cigarettes smoked current (pack per day) - Reported 0.4 [facility] Work Phone: Start: 08-10-2023 Tobacco use and exposure Smokeless tobacco non-user [facility] Start: 09-30-2023 End: 05-04-2024 Alcoholic beverage intake Current drinker of alcohol (finding) [facility] Start: 09-24-2023 End: 05-04-2024 Alcohol Use Disorder Identification Test - Consumption [AUDIT-C] [facility] Work Phone: How often to you hav e a drink containing alcohol? 2-3 time sa week [facility] Work Phone: How many standard dr inks containing alcohol do you have on a typical day? 3 or 4 [facility] How often do you hav e 6 or more drinks on 1 occasion? Weekly [facility] Start: 03-05-2023 Alcohol Comment caffeine intake: 1-2 cups per day coffee, soda [facility] Start: 1955 Sex assigned at Not on file [facility] History of Present illness Narrative 05-04-2024 Levi Ramos NP - 05/04/2024 11:00 AM EDT Note Date & Type Note Facility 05-04-2024 History of Presen t illness Narrative Images from the original note were not included. Subjective : Chief Complaint: Sulaiman Nava is an 68 y.o. male here for an annual wellness visit. I have reviewed and reconciled the history and medication list with the patient today. Current Outpatient Medications Medication Sig Dispense Refill albuterol HFA 90 mcg/act inhaler Inhale 1 puff every 4 (four) hours if needed for wheezing or shortness of breath 18 g 2 amLODIPine (Norvasc) 5 MG tablet Take 1 tablet (5 mg) by mouth Daily 90 tablet 3 cloNIDine (Catapres) 0.1 MG tablet Take 1 tablet (0.1 mg) by mouth every 1 (one) hour if needed for high blood pressure (SBP > 170) 60 tablet 11 phenylephrine (Neel-Synephrine) 1 % nasal spray Administer 2 sprays into each nostril every 4 (four) hours if needed for congestion for up to 25 days Do not use for more than 3 days. 15 mL 1 No current facility-administered medications for this visit. Review of Systems Constitutional: Positive for fatigue. HENT: Negative. Eyes: Negative. Respiratory: Negative. Cardiovascular: Negative. Gastrointestinal: Negative. Genitourinary: Negative. Musculoskeletal: Positive for arthralgias. Skin: Negative. Neurological: Negative. Psychiatric/Behavioral: Negative. List of current healthcare providers: Patient Care Team: Jeevan Bertrand MD as PCP - General (Internal Medicine) Jeevan Bertrand MD as PCP - Patrick Paz LPN Medicare Annual Visit Over the past 2 weeks, how often have you been bothered by any of the following problems? Little interest or pleasure in doing things: Not at all Feeling down, depressed, or hopeless: Not at all Patient Health Questionnaire-2 Score: 0 Baxter Fall Risk History of Falling, Immediate or Within 3 Months: No Health Risk Assessment Form Do you need help eating, bathing, using the toilet, dressing, or getting around your home?: No Can you prepare your own meals?: Yes Can you do your own housework without help?: Yes Can you shop for groceries or clothes without help?: Yes Do you exercise for about 20 minutes 3 or more days a week?: Yes How confident are you that you can control and manage most of your health problems?: Very confident Can you mange your money, credit cards and accounts, pay bills and taxes?: Yes Cognitive Screening Three Word Registration: Pallavi Caballero Chair Pain Assessment Pain Score: 3 Advance Care Planning Do you have a living will?: Yes Do you have a medical power of attorney general?: Yes Objective : BP 138/82 Pulse 91 Resp 17 Ht 5' 7 Wt 154 lb 6.4 oz SpO2 97% BMI 24.18 kg/m No results found. Physical Exam Vitals reviewed. Constitutional: Appearance: Normal appearance. HENT: Head: Normocephalic. Nose: Nose normal. Mouth/Throat: Mouth: Mucous membranes are moist. Pharynx: Oropharynx is clear. Eyes: Conjunctiva/sclera: Conjunctivae normal. Cardiovascular: Rate and Rhythm: Normal rate and regular rhythm. Pulmonary: Effort: Pulmonary effort is normal. Breath sounds: Normal breath sounds. Abdominal: General: Bowel sounds are normal. Palpations: Abdomen is soft. Musculoskeletal: Cervical back: Neck supple. Skin: General: Skin is warm and dry. Neurological: General: No focal deficit present. Mental Status: He is alert and oriented to person, place, and time. Psychiatric: Mood and Affect: Mood normal. Behavior: Behavior normal. Assessment/Plan : The following health maintenance schedule was reviewed with the patient and provided in printed form in the after visit summary: Health Maintenance Topic Date Due Pneumococcal Vaccine: 65+ Years (1 of 2 - PCV) Never done Influenza Vaccine (1) Never done Colorectal Cancer Screening 04/04/2025 Medicare Annual Wellness (AWV) 05/04/2025 Advance Care Planning Encourage pt to have living will and DPOA 1. Other iron deficiency anemia Await lab - CBC; Future - CBC 2. Screening for prostate cancer Await lab - PSA; Future - PSA 3. Primary hypertension (CMS/HCC) Patient's blood pressure is currently well controlled. Continue with current medications and I will continue to monitor. Goal BP remains less than 130/80. - Comprehensive metabolic panel; Future - Comprehensive metabolic panel 4. Screening for lipid disorders Await lab - Lipid panel; Future - Lipid panel 5. Hypertension, unspecified type (CMS/HCC) Patient's blood pressure is currently well controlled. Continue with current medications and I will continue to monitor. Goal BP remains less than 130/80. - cloNIDine (Catapres) 0.1 MG tablet; Take 1 tablet (0.1 mg) by mouth every 1 (one) hour if needed for high blood pressure (SBP > 170) Dispense: 60 tablet; Refill: 11 - amLODIPine (Norvasc) 5 MG tablet; Take 1 tablet (5 mg) by mouth Daily Dispense: 90 tablet; Refill: 3 6. Primary insomnia Discussed sleep hygiene with the patient. Encouraged patient to try to go to bed at the same time every night and wake up at the same time each morning. Also encouraged patient to use the bed for sleep and intimacy only. Avoid stimulating activities before bed, i.e. use of electronic devices, watching TV. Avoid exercise within 4 hours of going to bed. Avoid caffeine within 6 hours of going to bed. Keep bedroom cool and dark. Avoid nicotine and alcohol. 7. Panlobular emphysema (CMS/HCC) This is a chronic medical condition that is stable since last assessment. No changes in treatment are suggested at this time. 8. Chronic hepatitis C without hepatic coma (CMS/HCC) This is a chronic medical condition that is stable since last assessment. No changes in treatment are suggested at this time. - US LIVER; Future - US LIVER 9. 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 No changes in treatment are suggested at this time. 10. Gastroesophageal reflux disease without esophagitis GERD discussed with the patient. Pt educated regarding avoiding high acid food triggers such as caffeine products, fruits high in acid, spicy foods, and tomato based products. Advsied to avoid all NSAIDS medications, i.e. Motrin, Aleve. Ok to use Tylenol prn. Encouraged pt to avoid laying down immediately after meals. 11. Generalized OA This is a chronic medical condition that is stable since last assessment. No changes in treatment are suggested at this time. 12. Cigarette nicotine dependence without complication Discussed smoking cessation with the patient. Encouraged patient to cut back and soon quit smoking. Health risks of smoking, and benefits of quitting reviewed with the patient. - CT lung screening low dose; Future 13. Cystoid macular degeneration of left eye This is a chronic medical condition that is stable since last assessment. No changes in treatment are suggested at this time. 14. Depression with anxiety Medication as directed. Verbalizes understanding of the need to be seen in the ER for suicidal/homicidal ideation, excessive stress, elevated blood pressure or palpitations. Pt offers understanding of treatment plan. I discussed the side effects of the medications described and to seek medical care if they arise. Discussed stress mgmt strategies, social support and importance of healthy diet, exercise and regular sleep habits. Advised on relaxation methods to decrease anxiety and depression. 15. Medicare annual wellness visit, subsequent (Primary) Reviewed all relevant preventative screenings with the patient in detail. Medicare Wellness form completed and will be scanned into patient's chart. All needed testing was ordered. Will continue with yearly Medicare Wellness exams. 16. Routine general medical examination at [facility] care facility Reviewed all relevant preventative screenings with the patient in detail. Medicare Wellness form completed and will be scanned into patient's chart. All needed testing was ordered. Will continue with yearly Medicare Wellness exams. 17. Unspecified cirrhosis of liver (CMS/HCC) Await results of ultrasound - US LIVER; Future - US LIVER 18. Screening for colon cancer Await results - Cologuard colon cancer screening; Future - Cologuard colon cancer screening 19. Elevated liver enzymes Await results of ultrasound - US LIVER; Future - US LIVER Orders Placed This Encounter Procedures Lipid panel Standing Status: Future Number of Occurrences: 1 Standing Expiration Date: 05/04/2025 Order Specific Question: Print requisition? Answer: No Comprehensive metabolic panel Standing Status: Future Number of Occurrences: 1 Standing Expiration Date: 05/04/2025 Order Specific Question: Print requisition? Answer: No PSA Standing Status: Future Number of Occurrences: 1 Standing Expiration Date: 05/04/2025 Order Specific Question: Print requisition? Answer: No CBC Standing Status: Future Number of Occurrences: 1 Standing Expiration Date: 05/04/2025 Order Specific Question: Print requisition? Answer: No Electronically signed by Levi Ramos NP on May 04, 2024 documented in this encounter [facility] Telephone encounter Note 10-22-2023 Telephone Encounter - Nereida Castro - 10/22/2023 1:33 PM EDT Note Date & Type Note Facility 10-22-2023 Telephone encount er Note amLODIPine (Norvasc) 5 MG tablet [facility] Note 10-22-2023 Telephone Encounter - Nereida Castro - 10/22/2023 1:33 PM EDT Note Date & Type Note Facility 10-22-2023 Miscellaneous Notes Formattin g of this note might be different from the original. amLODIPine (Norvasc) 5 MG tablet [facility] documented in this encounter [facility] History of Present illness Narrative 09-30-2023 Gayla Damon MD - 09/30/2023 9:00 AM EDT Note Date & Type Note Facility 09-30-2023 History of Presen t illness Narrative Subjective Patient ID: Sulaiman Nava is a 68 y.o. male who presents for Post-op (Sp BMT, Nasal Endo @ [facility] on 08/31) Pt notes some popping pedro, and that though improved, he still feels his balance is off. indicates this is related to drinking Family History Problem Relation Name Age of Onset Mental illness Mother Hypertension Mother Heart disease Mother Diabetes Other Hypertension Other Stroke Other Mental illness Other Active Ambulatory Problems Diagnosis Date Noted Anemia 08/21/2010 Bronchiectasis (CMS/HCC) 09/11/2022 Chronic hepatitis C without hepatic coma (CMS/HCC) 09/11/2022 Chronic pansinusitis 09/11/2022 Cigarette nicotine dependence without complication 09/11/2022 Cirrhosis of liver (CMS/HCC) 08/22/2011 Cystoid macular degeneration of left eye 09/11/2022 Depression with anxiety 09/11/2022 Esophageal reflux 01/26/2008 Generalized OA 01/26/2008 Insomnia 09/11/2022 Nasal obstruction 09/11/2022 Non-seasonal allergic rhinitis 09/11/2022 Panlobular emphysema ([facility]/HCC) 09/11/2022 Primary hypertension ([facility]/HCC) 10/06/2022 ETD (Eustachian tube dysfunction), bilateral 08/12/2023 OME (otitis media with effusion), bilateral 08/12/2023 Resolved Ambulatory Problems Diagnosis Date Noted No Resolved Ambulatory Problems Past Medical History: Diagnosis Date Cataract Chronic sinusitis Macular degeneration Past Surgical History: Procedure Laterality Date APPENDECTOMY CHOLECYSTECTOMY EYE SURGERY Bilateral 12/19/2020 Lens implant in eye MYRINGOTOMY W/ TUBES Bilateral 09/01/2023 BMT -Timmis @ [facility] NASAL ENDOSCOPY 09/01/2023 Timmis @ [facility] TONSILLECTOMY No Known Allergies Current Outpatient Medications on File Prior to Visit Medication Sig Dispense Refill albuterol HFA 90 mcg/act inhaler Inhale 1 puff every 4 (four) hours if needed for wheezing or shortness of breath 18 g 2 amLODIPine (Norvasc) 5 MG tablet Take 1 tablet (5 mg) by mouth in the morning. 90 tablet 3 cloNIDine (Catapres) 0.1 MG tablet Take 1 tablet (0.1 mg) by mouth every 1 (one) hour if needed for high blood pressure (SBP > 170) 60 tablet 11 phenylephrine (Neel-Synephrine) 1 % nasal spray Administer 2 sprays into each nostril every 4 (four) hours if needed for congestion for up to 25 days Do not use for more than 3 days. 15 mL 1 No current facility-administered medications on file prior to visit. Objective Last Recorded Vitals Vitals: 09/30/23 0859 BP: (!) 161/92 ENT Physical Exam Ear Ear comments: Pedro TIP&P, dry. Dried blood at base Assessment/Plan Diagnoses and all orders for this visit: ETD (Eustachian tube dysfunction), bilateral Floxin to soften crusts documented in this encounter [facility] Evaluation note Note Date & Type Note Facility Evaluation note Diagnosis Hypertension, unspecified type (CMS/HCC) documented in this encounter [facility] Evaluation note Note Date & Type Note Facility Evaluation note Diagnosis ETD (Eustachian tube dysfunction), bilateral- Primary documented in this encounter [facility] Evaluation note Note Date & Type Note Facility Evaluation note Diagnosis Medicare annual wellness visit, subsequent- Primary Other iron deficiency anemia Screening for prostate cancer Special screening for malignant neoplasm of prostate Primary hypertension (CMS/HCC) Unspecified essential hypertension Screening for lipid disorders Hypertension, unspecified type (CMS/HCC) Primary insomnia Persistent disorder of initiating or maintaining sleep Panlobular emphysema (CMS/HCC) Other emphysema Chronic hepatitis C without hepatic coma (CMS/HCC) 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) Gastroesophageal reflux disease without esophagitis Esophageal reflux Generalized OA Cigarette nicotine dependence without complication Cystoid macular degeneration of left eye Depression with anxiety Dysthymic disorder Routine general medical examination at health care facility Routine general medical examination at a health care facility Unspecified cirrhosis of liver (CMS/HCC) Screening for colon cancer Special screening for malignant neoplasms, colon Elevated liver enzymes Other nonspecific abnormal serum enzyme levels documented in this encounter [facility] Summary Purpose Family History No Family History Records FoundNo Family History Records FoundNo Family History Records Found Advance Directives No Advanced Directives Records FoundNo Advanced Directives Records FoundNo Advanced Directives Records Found Additional Source Comments (unrecognized sect ion and content) No Status Records FoundNo Status Records FoundNo Status Records Found INFORMATION SOURCE (unrecogn ized section and content) DATE CREATED AUTHOR 06/25/2019 [facility] DATE CREATED AUTHOR AUTHOR'S ORGANIZ ATION 11/30/2021 [facility] DATE CREATED AUTHOR AUTHOR'S ORGANIZ ATION 05/05/2024 [facility] EPIC Care Teams (unrecognized sec tion and content) Washateria Attendant Relationship Specialty Start Date End Date Jeevan Bertrand MD [address] [place] [address] PCP - Patrick HORAN 02/10/21 Jeevan Bertrand MD [address] [place] [address] PCP - General Internal Medicine 06/17/22Thursday, Lala, CONTACT [employer]ER [address] [place] [address] Licensed Practical Nurse Family Medicine 08/24/23 Washateria Attendant Relationship Specialty Start Date End Date Jeevan Bertrand MD [address] [place] [address] PCP - Patrick HORAN 02/10/21 Jeevan Bertrand MD [address] [place] [address] PCP - General Internal Medicine 06/17/22Thursday, Lala, CONTACT LENS POLISHER [address] [place] [address] Licensed Practical Nurse Family Medicine 08/24/23 Washateria Attendant Relationship Specialty Start Date End Date Jeevan Bertrand MD [address] [place] [address] PCP - Patrick HORAN 02/10/21 Jeevan Bertrand MD [address] [place] [address] PCP - General Internal Medicine 06/17/22Thursday, Lala, CONTACT LENS POLISHER [address] [place] [address] Licensed Practical Nurse Family Medicine 08/24/23 Washateria Attendant Relationship Specialty Start Date End Date Jeevan Bertrand MD [address] [place] [address] PCP - Patrick HORAN 02/10/21 Jeevan Bertrand MD [address] [facility] [address] [place] [address] PCP - General Internal Medicine 06/17/22 Anamika Paz LPN 04/29/24 Washateria Attendant Relationship Specialty Start Date End Date Jeevan Bertrand MD [address] [facility] [address] [place] [address] PCP - Patrick HORAN 02/10/21 Jeevan Bertrand MD [address] [facility] [address] [place] [address] PCP - General Internal Medicine 06/17/22 Anamika Paz LPN 04/29/24 Reason for Visit (unrecogniz ed section and content) Reason Comments Post-op Sp BMT, Nasal Endo @ [facility] on 08/31 FOR RECORDS PERTAINING TO PATIENTS WHO ARE [...] BE BASED ON THE PRIMARY CLINICAL RECORDS. [email or web address] provides no warranty or guarantee of the accuracy or completeness of information in this document.
== END 2024-05-28 09:05 | disposition home or self-care (01) ==
LOC: US 09:04
PROVIDERS: PCP Internal Medicine; Visit Provider Nurse Practitioner Family
DX: R74.8 Abnormal levels of other serum enzymes (principal); K74.60 Unspecified cirrhosis of liver; K76.0 Fatty (change of) liver, not elsewhere classified; Z90.49 Acquired absence of other specified parts of digestive tract
CPT/HCPCS: 76705

== ENCOUNTER 2024-09-01 09:59 | Outpatient (OUT) | payer MEDICARE, SELFPAY ==
--- NOTE | 2024-09-01 10:13 | CT_ITS ---
[address] [address] Patient Name: CONNIE UREÑA MRN: [id number] date: 1955 Sex: M Assigned Patient Location: CT Current Patient Location: CT Accession/Order Number: [id number] Exam Date: 09/01/2024 10:32 Report Date: 09/01/2024 10:35 At the request of: LEVI MALDONADO Procedure: CT lung screening low-dose CT CHEST WITHOUT CONTRAST, LOW DOSE SCREENING: CLINICAL DATA: A 69-year old current smoker COMPARISON: Lung screening CT 08/15/2023 TECHNIQUE: Noncontrast axial CT scan images of the chest were obtained under the low dose screening CT protocol. Coronal and sagittal reconstructed images were also submitted. FINDINGS: Mediastinum : Suboptimal evaluation due to low-dose technique. Thoracic aorta appears normal in caliber. Pulmonary trunk appears nondilated. No pericardial effusion. No lymphadenopathy. The esophagus is grossly unremarkable. Moderate size hiatal hernia. Lungs: No focal consolidation, pneumothorax or pleural effusion. Trachea and distal airways appear patent. Diffuse bronchial wall thickening. Emphysema. No suspicious noncalcified pulmonary nodule or mass. Upper abdomen: Partially visualized cirrhotic liver. Bony thorax and chest wall: Soft tissues surrounding the chest wall demonstrate no acute findings. Osseous structures demonstrate degenerative change. CT/CT lung screening low-dose IMPRESSION: NO SUSPICIOUS PULMONARY NODULE. LUNG - RADS Version 1.0 Assessment: Category 1, Negative (No nodules and definitely benign nodules). Management: Continue annual lung screening with LDCT in 12 months. Impression dictated by: Teto Alexander Jr., D.O. 09/01/2024 10:35 AM Dictation Location: [place] [address] Electronically authenticated by: [id number] Y Date: 09/01/2024 10:35
--- OUTSIDE RECORDS SUMMARY | 2024-09-01 10:13 | XMS_ITS | CCD ---
Author Organization [facility] Inform ion Partnership [facility] Care Team Providers Care Sand Drier Name Role Phone HALEY, DR TABARES Admitting Unavailable HALEY, DR TABARES Attending Unavailable HALEY, DR TABARES Primary Care Unavailable HALEY, DR TABARES Consulting Unavailable KACI, DR MARIE Delgado Consulting Unavailable HALEY, DR TABARES Admitting Unavailable HALEY, DR TABARES Attending Unavailable HALEY, DR TABARES Primary Care Unavailable HALEY, DR TABARES Consulting Unavailable FLACO, DR FELICIANO Aviles Consulting Unavailable Jeevan Bertrand MD Unavailable Jeevan Bertrand MD Primary Care Provider [phone] Joesph CONCAVER, Lala Unavailable Mercer CONCAVER, Anamika Unavailable Unavailable LEVI RAMOS Attending Unavailable JEEVAN BERTRAND Attending Unavailable JEEVAN BERTRAND Attending Unavailable JEEVAN BERTRAND Attending Unavailable GAYLA DAMON Attending Unavailable SARAH SMITH Attending Unavailable LEVI RAMOS Attending Unavailable GAYLA DAMON Attending Unavailable Medications Current Medications Medication Drug Class(es) Dates Sig (Normalized) Sig (Original) [id number] 200 actuat albuterol 0.09 mg/actuat metered dose inhaler (8 sources) beta2-Adrenergic Agonist Start: 08-10-2023 take 1 puff(s) by inhalation every four hours for wheezing albuterol HFA 90 mcg/act inhaler Indications: Panlobular emphysema (CMS/HCC) Inhale 1 puff every 4 (four) hours if needed for wheezing or shortness of breath 18 g 2 08/10/2023 Active amLODIPine 5 mg oral tablet (11 sources) Dihydropyridine Calcium Channel Chandler Start: 10-09-2022 End: 05-04-2025 take 1 tablet by mouth once daily amLODIPine (Norvasc) 5 MG tablet Indications: Hypertension, unspecified type (CMS/HCC) Take 1 tablet (5 mg) by mouth Daily 90 tablet 3 05/04/2024 05/04/2025 Active cloNIDine hydrochloride 0.1 mg oral tablet (10 sources) Central alpha-2 Adrenergic Agonist Start: 04-27-2023 [...] Active phenylephrine hydrochloride 10 mg/ml nasal solution (8 sources) alpha-1 Adrenergic Agonist Start: 07-22-2023 phenylephrine [...] Problem Date Documented Date Episodic/Chronic Anxiety disorders (10 sources) Mixed anxiety and depressive disorder; Translations: [Other specified anxiety disorders] Onset: 09-11-2022 09-11-2022 Chronic Chronic obstructive pulmonary disease and bronchiectasis (18 sources) Bronchiectasis; Translations: [Bronchiectasis, uncomplicated] Onset: 09-11-2022 09-11-2022 Chronic Deficiency and other anemia (2 sources) Iron deficiency anemia; Translations: [Other iron deficiency anemias] 05-04-2024 Episodic Esophageal disorders (10 sources) Gastroesophageal reflux disease; Translations: [Gastro-esophageal reflux disease without esophagitis] Onset: 01-26-2008 09-11-2022 Chronic Essential hypertension (13 sources) Hypertensive disorder; Translations: [Essential (primary) hypertension] Onset: 10-06-2022 10-22-2023 Chronic Hepatitis (10 sources) Chronic hepatitis C; Translations: [Chronic viral hepatitis C] Onset: 09-11-2022 09-11-2022 Chronic Miscellaneous mental health disorders (2 sources) Primary insomnia; Translations: [Primary insomnia] 05-04-2024 Chronic Osteoarthritis (10 sources) Degenerative joint disease involving multiple joints; Translations: [Polyosteoarthritis, unspecified] Onset: 01-26-2008 09-11-2022 Chronic Other liver diseases (12 sources) Cirrhosis of liver; Translations: [Unspecified cirrhosis [...] 08-21-2021 05-04-2024 Episodic Other upper respiratory disease (8 sources) Allergic rhinitis; Translations: [Other allergic rhinitis] Onset: 09-11-2022 09-11-2022 Chronic Other upper respiratory infections (8 sources) Chronic pansinusitis; Translations: [Chronic pansinusitis] Onset: 09-11-2022 09-11-2022 Chronic Retinal detachments; defects; vascular occlusion; and retinopathy (10 sources) Cystoid macular degeneration, left eye; Translations: [Cystoid macular degeneration] Onset: 09-11-2022 09-11-2022 Chronic Substance-related disorders (16 sources) Nicotine dependence, cigarettes, uncomplicated; Translations: [Nicotine dependence] Onset: 08-19-2021 Chronic Past or Other Problems Problem Classification Problem Date Documented Da te Episodic/Chronic Deficiency and other anemia (8 sources) Anemia; Translations: [Anemia, unspecified] Onset: 08-21-2010 09-11-2022 Episodic Other upper respiratory disease (8 sources) Nasal obstruction; Translations: [Other specified disorders of nose and nasal sinuses] Onset: 09-11-2022 09-11-2022 Episodic Otitis media and related conditions (18 sources) Dysfunction of bilateral eustachian tubes; Translations: [Unspecified Eustachian tube disorder, bilateral] Onset: 08-12-2023 08-12-2023 Episodic Residual codes; unclassified (8 sources) Insomnia; Translations: [Insomnia, unspecified] Onset: 09-11-2022 09-11-2022 Episodic Results Test Name Value Interpretation Reference Range Facility [place] [address] Ultrasound Report Signed Patient: CONNIE NAVA MR#: [id number] : 1955 Acct:[id number] Age/Sex: 68 / M ADM Date: 05/28/24 Loc: US Attending Dr: LEVI RAMOS Ordering Physician: LEVI RAMOS Date of Service: 05/28/24 Procedure(s): US right upper quadrant Accession Number(s): [id number] cc: JEEVAN BERTRAND ; LEVI RAMOS [place] [id number] Patient Name: CONNIE NAVA MRN: [id number] date: 1955 Sex: M Assigned Patient Location: US Current Patient Location: Accession/Order Number: [id number] Exam Date: 05/30/2024 09:42 Report Date: 05/30/2024 09:44 At the request of: LEVI RAMOS Procedure: US right upper quadrant LIMITED ABDOMINAL ULTRASOUND WITH ASSESSMENT OF RIGHT UPPER QUADRANT HISTORY: Elevated liver enzymes COMPARISON: None Negative ultrasound Evans's sign reported. COMMON BILE DUCT: Normal caliber. No intraluminal abnormality. LIVER CONTOUR: Cirrhosis. LIVER PARENCHYMA: Hepatic steatosis HEPATIC LESION: None INTRAHEPATIC BILIARY DUCTAL DILATATION No ductal dilatation identified. Cholecystectomy Pancreas: Limited assessment of pancreatic tail. No gross abnormality PORTAL VEIN: Normal blood flow. Liver size: Normal No RIGHT hydronephrosis identified. US/US right upper quadrant IMPRESSION: Liver cirrhosis. Hepatic steatosis. No biliary duct dilatation. Cholecystectomy Impression dictated by: Gary Alex M.D.05/30/2024 9:44 AM Dictation Location: RADIO-PC-23 Electronically authenticated by: [id number] Y Date: 05/30/2024 09:44 Dictated By: Gary Alex D.O. Signed By: 05/30/2447 DD/ TD/TT: Diabetic Educator: [facility] Radiology, Radiologist, - 05/30/2024 [place] [address] Ultrasound Report Signed Patient: CONNIE NAVA MR#: [id number] : 1955 Acct:[id number] Age/Sex: 68 / M ADM Date: 05/28/24 Loc: US Attending Dr: LEVI RAMOS Ordering Physician: LEVI RAMOS Date of Service: 05/28/24 Procedure(s): US right upper quadrant Accession Number(s): [id number] cc: JEEVAN BERTRAND ; LEVI RAMOS [place] [address] Patient Name: CONNIE NAVA MRN: [facility]:[id number] date: 1955 Sex: M Assigned Patient Location: US Current Patient Location: Accession/Order Number: [id number] Exam Date: 05/30/2024 09:42 Report Date: 05/30/2024 09:44 At the request of: LEVI RAMOS Procedure: US right upper quadrant LIMITED ABDOMINAL ULTRASOUND WITH ASSESSMENT OF RIGHT UPPER QUADRANT HISTORY: Elevated liver enzymes COMPARISON: None Negative ultrasound Evans's sign reported. COMMON BILE DUCT: Normal caliber. No intraluminal abnormality. LIVER CONTOUR: Cirrhosis. LIVER PARENCHYMA: Hepatic steatosis HEPATIC LESION: None INTRAHEPATIC BILIARY DUCTAL DILATATION No ductal dilatation identified. Cholecystectomy Pancreas: Limited assessment of pancreatic tail. No gross abnormality PORTAL VEIN: Normal blood flow. Liver size: Normal No RIGHT hydronephrosis identified. US/US right upper quadrant IMPRESSION: Liver cirrhosis. Hepatic steatosis. No biliary duct dilatation. Cholecystectomy Impression dictated by: Gary Alex M.D.05/30/2024 9:44 AM Dictation Location: RADIO-PC-23 Electronically authenticated by: [id number] Y Date: 05/30/2024 09:44 Dictated By: Gary Alex D.O. Signed By: 05/30/2447 DD/ 3 TD/TT: Diabetic Educator: [facility] Radiology Study observation (narrative) [facility] RIGHT UPPER QUADRANTOrder ed By: Radiologist Radiology on 05-30-2024 [facility] [employer] Work Phone: CREATININEon 11-26-2021 Creatinine [Mass/Vol] 1.11 mg/dL Normal 0.70-1.30 [facility] Comment on above: Performed By: #### C PRICE #### [facility] [address] [place] [address] [address] Joao Servin EGFR-AF UKRAINIAN >60 Normal >=60 [facility] Comment on above: Performed By: #### C PRICE #### [facility] [address] [address] [address] Joao Servin EGFR-NON AF UKRAINIAN >60 Normal >=60 [facility] Comment on above: Performed By: #### C PRICE #### [facility] [address] [place] [address] CHEST W CONon 11-26-2021 CT CHEST W CON EXAMINATION: CT CHEST W CON HISTORY: Lung field abnormal COMPARISON: [...] by: FELICIANO SAM Date: 2021-11-26 20:09 Normal [facility] CT LUNG CANCER SCREENINGon 0 08-19-2021 CT [...] by: MARIE CLEMONS Date: 2021-08-19 14:25 Normal [facility] Coding Summary.on 05-03-2019 Coding Summary. CODING DATE: 05/03/2019 [facility] STATUS: Home (Routine DC) PAYOR: Medicare [...] Moraes CphT Date Saved: 05/03/2019 09:11 am [facility] CT Maxillofacial w/o Contras ton 05-02-2019 CT [...] M.D. Transcribed by: KATELYNN Technologist: Jo AMARO [facility] Vital Signs Date Time Vital Sign Value Performing Clinician Ashleigh mei 05-04-2024 11:[id number] Body height 170.2 cm Levi Ramos NP Work Phone: [facility] 05-04-2024 11:[id number] Body mass index (BMI) [Ratio] 24.18 kg/m2 Levi Ramos NP Work Phone: [facility] 05-04-2024 11:20-0400 Body weight 70.03 kg Levi Ramos NP Work Phone: [facility] 05-04-2024 11:20-0400 Diastolic blood pressure 82 mm[Hg] Levi Ramos POLICEMAN Work Phone: [facility] 05-04-2024 11:20-0400 Heart rate 91 /min Levi Ramos POLICEMAN Work Phone: [facility] 05-04-2024 11:20-0400 Respiratory rate 17 /min Levi Ramos POLICEMAN Work Phone: [facility] 05-04-2024 11:20-0400 SaO2% (BldA) [Mass fraction] 97 % Levi Ramos POLICEMAN Work Phone: [facility] 05-04-2024 11:20-0400 Systolic blood pressure 138 mm[Hg] Levi Ramos POLICEMAN Work Phone: [facility] 09-30-2023 08:59-0400 Body height 170.2 cm Gayla Damon MD Work Phone: [facility] 09-30-2023 08:59-0400 Body mass index (BMI) [Ratio] 24.28 kg/m2 Gayla Damon MD Work Phone: [facility] 09-30-2023 08:59-0400 Body weight 70.31 kg Gayla Damon MD Work Phone: [facility] 09-30-2023 08:59-0400 Diastolic blood pressure 92 mm[Hg] Gayla Damon MD Work Phone: [facility] 09-30-2023 08:59-0400 Systolic blood pressure 161 mm[Hg] Gayla Damon MD Work Phone: [facility] Healthcare Encounters Encounter Date Encounter Type Care Provider Facility Start: 05-30-2024 End: 05-30-2024 Clinisync Result Encounter Levi Ramos POLICEMAN Work Phone: [facility] External Department Unsolicited Start: 05-30-2024 End: 05-30-2024 Clinisync Result Encounter Levi Ramos POLICEMAN Work Phone: [facility] External Department Unsolicited Start: 05-04-2024 End: 05-04-2024 Bamboo flowsheet Levi Ramos POLICEMAN Work Phone: [facility] Start: 05-04-2024 End: 05-04-2024 Bamboo flowsheet Levi Ramos POLICEMAN Work Phone: [facility] Start: 05-04-2024 End: 05-04-2024 Assay of hemosiderin, quant Levi Ramos POLICEMAN Work Phone: [facility] Start: 05-04-2024 End: 05-04-2024 Patient encounter procedure Levi Ramos POLICEMAN Work Phone: [facility] Comment on above: Medicare annual well ness visit, subsequent (Primary Dx); Other iron deficiency [...] [facility] Start: 09-30-2023 End: 09-30-2023 Bamboo flowsoksana Damon MD Work Phone: [facility] Start: 09-30-2023 End: 09-30-2023 Office outpatient visit 25 minutes Gayla Damon MD Work Phone: [facility] Comment on above: ETD (Eustachian tube dysfunction), bilateral (Primary Dx) Start: 09-30-2023 End: 09-30-2023 ambulatory GAYLA Roderick MARISOL Not Available Start: 08-27-2023 End: 08-27-2023 ambulatory LEVI RAMOS Not Available Start: 08-12-2023 End: 08-12-2023 ambulatory SARAH SMITH Not Available Start: 08-12-2023 End: 08-12-2023 ambulatory GAYLA Vaughn TIMMIMeryl Not Available Start: 08-10-2023 End: 08-10-2023 ambulatory JEEVAN BERTRAND Not Available Start: 07-22-2023 End: 07-22-2023 ambulatory JEEVAN BERTRAND Not Available Start: 07-15-2023 End: 07-15-2023 ambulatory JEEVAN BERTRAND Not Available Start: 11-26-2021 End: 11-27-[address] JEEVAN BERTRAND Facility:[facility] Start: 08-19-2021 End: [address] JEEVAN BERTRAND Facility:[facility] Procedures Date Procedure Procedure Detail Performing Clinician Start: 05-30-2024 US RIGHT UPPER QUADRANT Levi Ramos POLICEMAN Work Phone: Plan of Treatment Date Care Activity Detail Author Start: 05-04-2025 Medicare Annual Well ness (AWV) Medicare Annual Wellness (AWV) [facility] Start: 04-04-2025 Screening for malign ant neoplasm of colon [facility] Start: 10-10-2024 Influenza vaccination Influenz a Vaccine (Season Ended) [facility] Start: 08-09-2024 Medicare Annual Well ness (AWV) Medicare Annual Wellness (AWV) [facility] Start: 05-04-2024 End: 05-04-2025 CBC panel - Blood by Automated count CBC Lab Routine Other iron deficiency anemia Expected: 05/04/2024 (Approximate), Expires: 05/04/2025 [facility] Comment on above: Expected: 05/04/2024 (Approximate), Expires: 05/04/2025 Start: 05-04-2024 End: 05-04-2025 Comprehensive metabolic 2000 panel - Serum or Plasma Comprehensive metabolic panel Lab Routine Primary hypertension (CMS/HCC) Expected: 05/04/2024 (Approximate), Expires: 05/04/2025 [facility] Comment on above: Expected: 05/04/2024 (Approximate), Expires: 05/04/2025 Start: 05-04-2024 End: 05-04-2025 CT Chest for screening WO contrast CT lung screening low dose Imaging Routine Cigarette nicotine dependence without complication Expected: 05/04/2024, Expires: 05/04/2025 [facility] Comment on above: Expected: 05/04/2024 , Expires: 05/04/2025 Start: 05-04-2024 End: 05-04-2025 Lipid 1996 panel - Serum or Plasma Lipid panel Lab Routine Screening for lipid disorders Expected: 05/04/2024 (Approximate), Expires: 05/04/2025 [facility] Work Phone: Comment on above: Expected: 05/04/2024 (Approximate), Expires: 05/04/2025 Start: 05-04-2024 End: 05-04-2025 Noninvasive colorectal cancer DNA and occult blood screening [Presence] in Stool Cologuard colon cancer screening Lab Routine Screening for colon cancer Expected: 05/04/2024 (Approximate), Expires: 05/04/2025 [facility] Comment on above: Expected: 05/04/2024 (Approximate), Expires: 05/04/2025 Start: 05-04-2024 End: 05-04-2025 Prostate specific Ag [Mass/volume] in Serum or Plasma PSA Lab Routine Screening for prostate cancer Expected: 05/04/2024 (Approximate), Expires: 05/04/2025 [facility] Comment on above: Expected: 05/04/2024 (Approximate), Expires: 05/04/2025 Start: 05-04-2024 End: 05-04-2025 US Abdomen limited US LIVER Imaging Routine Chronic hepatitis C without hepatic coma (CMS/HCC) Unspecified cirrhosis of liver (CMS/HCC) Elevated liver enzymes Expected: 05/04/2024, Expires: 05/04/2025 [facility] Comment on above: Expected: 05/04/2024 , Expires: 05/04/2025 Start: 05-04-2024 End: 05-04-2024 Patient encounter procedure 05/04/2024 11:00 AM EDT Office Visit [facility] [address] [place] [address] Levi Ramos NP [address] [place] [address] Arrived [facility] Comment on above: Arrived Start: 12-02-2023 Pneumococcal Vaccine : 65+ Years (1 of 2 - PCV) Pneumococcal Vaccine: 65+ Years (1 of 2 - PCV) [facility] Comment on above: Postponed from 08/20 (Patient Refused) Start: 12-02-2023 End: 12-02-2023 Patient encounter procedure 12/02/2023 10:20 AM EDT Office Visit [facility] [address] [place] [address] Gayla Damon MD [address] [place] [address] [facility] Start: 10-11-2023 Influenza vaccination Influenza Vacc ine (#1) [facility] Start: 09-30-2023 End: 09-30-2023 Patient encounter procedure 09/30/2023 9:00 AM EDT Office Visit [facility] [address] [place] [address] Gayla Damon MD [address] [place] [address] Arrived [facility] Comment on above: Arrived Start: 1973 Pneumococcal Vaccine : 65+ Years (1 of 2 - PCV) Pneumococcal Vaccine: 65+ Years (1 of 2 - PCV) [facility] Start: 1960 Pneumococcal Vaccine : 65+ Years (1 of 2 - PCV) Pneumococcal Vaccine: 65+ Years (1 of 2 - PCV) [facility] Start: 1955 Screening for malign ant neoplasm of colon [facility] Payers Date Payer Category Payer Medicare [employer] ADVANTAGE [facility] MEDICARE ADVANTAGE [id number] 2021-Present [address] [place] [address] [id number] 2021 Medicare (Managed Care) [employer]RICK [employer] ADVANTAGE Member Subscriber Plan / Payer (Effective 2021-Present) Name: Connie Nava Relation to Subscriber: Self Name: Connie Nava Payer ID: Not on file Group ID: [id number] Type: Not on file Address: [address] [place] [id number] 1959 Unknown [id number] 1955 Unknown [id number] .[id number] 1955 Unknown [id number] .2.593 1954 Unknown [id number] [id number] .2.9 1955 Unknown [id number] [id number] .2.1258 1955 Unknown [id number] .2.125 1955 Unknown [id number] .2.1258 1954 Unknown [id number] [id number] .2.1259 1954 Unknown [id number] [id number] .2.125 1954 Unknown [id number] [id number] .2.1259 1955 Unknown [id number] .2.1259 Social History Date Type Detail Facility Start: 08-09-1993 Tobacco smoking status [facility] Smokes tobacco daily [facility] Start: 08-09-1993 History of tobacco use Cigarette Smoker [facility] Start: 08-10-2023 End: 05-04-2024 Cigarettes smoked current (pack per day) - Reported 0.4 [facility] Work Phone: Start: 08-10-2023 Tobacco use and exposure Smokeless tobacco non-user [facility] Start: 09-30-2023 End: 05-04-2024 Alcoholic beverage intake Current drinker of alcohol (finding) [facility] Start: 09-24-2023 End: 05-04-2024 Alcohol Use Disorder Identification Test - Consumption [AUDIT-C] [facility] Work Phone: How often to you hav e a drink containing alcohol? 2-3 time sa week [facility] Work Phone: How many standard dr inks containing alcohol do you have on a typical day? 3 or 4 [facility] How often do you hav e 6 or more drinks on 1 occasion? Weekly [facility] Start: 03-05-2023 Alcohol Comment caffeine intake: 1-2 cups per day coffee, soda [facility] Start: 1955 Sex assigned at Not on file [facility] History of Present illness Narrative 05-04-2024 Levi Ramos NP - 05/04/2024 11:00 AM EDT Note Date & Type Note Facility 05-04-2024 History of Presen t illness Narrative Images from the original note were not included. Subjective : Chief Complaint: Connie Nava is an 68 y.o. male here [...] Do you have a medical power of insurance defense attorney?: Yes Objective : BP 138/82 Pulse 91 [...] exams. 16. Routine general medical examination at [facility] care facility Reviewed all relevant [...] May 04, 2024 documented in this encounter [facility] Telephone encounter Note 10-22-2023 Telephone Encounter [...] tablet [facility] documented in this encounter [facility] History of Present illness Narrative 09-30-2023 Gayla Damon MD - 09/30/2023 9:00 AM EDT Note Date & Type Note Facility 09-30-2023 History of Presen t illness Narrative Subjective Patient ID: Connie Nava is a 68 y.o. male who presents for Post-op (Sp BMT, Nasal Endo @ [facility] on 08/31) Pt notes some popping pedro, [...] 09/11/2022 Non-seasonal allergic rhinitis 09/11/2022 Panlobular emphysema (CMS/HCC) 09/11/2022 Primary hypertension (CMS/HCC) 10/06/2022 ETD (Eustachian tube dysfunction), bilateral 08/12/2023 OME (otitis media with effusion), bilateral 08/12/2023 Resolved Ambulatory Problems Diagnosis Date Noted No Resolved Ambulatory Problems Past Medical History: Diagnosis Date Cataract Chronic sinusitis Macular degeneration Past Surgical History: Procedure Laterality Date APPENDECTOMY CHOLECYSTECTOMY EYE SURGERY Bilateral 12/19/2020 Lens implant in eye MYRINGOTOMY W/ TUBES Bilateral 09/01/2023 BMT -Timmis @ [facility] NASAL ENDOSCOPY 09/01/2023 Timmis @ [facility] TONSILLECTOMY No Known Allergies Current Outpatient Medications [...] to soften crusts documented in this encounter [facility] Evaluation note Note Date & Type Note Facility Evaluation note Diagnosis Hypertension, unspecified type (CMS/HCC) documented in this encounter [facility] Evaluation note Note Date & Type Note Facility Evaluation note Diagnosis ETD (Eustachian tube dysfunction), bilateral- Primary documented in this encounter [facility] Evaluation note Note Date & Type [...] serum enzyme levels documented in this encounter [facility] Summary Purpose Family History No Family History Records FoundNo Family History Records FoundNo Family History Records Found Advance Directives No Advanced Directives Records FoundNo Advanced Directives Records FoundNo Advanced Directives Records Found Additional Source Comments (unrecognized sect ion and content) No Status Records FoundNo Status Records FoundNo Status Records Found INFORMATION SOURCE (unrecogn ized section and content) DATE CREATED AUTHOR 06/25/2019 Thony Heaton [facility] DATE CREATED AUTHOR AUTHOR'S ORGANIZ ATION 11/30/2021 [facility] DATE CREATED AUTHOR AUTHOR'S ORGANIZ ATION 05/05/2024 [facility] Care Teams (unrecognized sec tion and content) Sand Drier Relationship Specialty Start Date End Date Jeevan Bertrand MD [address] [place] [address] PCP - Patrick HORAN 02/10/21 Jeevan Bertrand MD [address] [place] [address] PCP - General Internal Medicine 06/17/22ThursdayLala LPN [address] [place] [address] Licensed Practical Nurse Family Medicine 08/24/23 Sand Drier Relationship Specialty Start Date End Date Jeevan Bertrand MD [address] [place] [address] PCP Israel Nguyen MA 02/10/21 Jeevan Bertrand MD [address] [place] [address] PCP - General Internal Medicine 06/17/22ThursdayLala LPN [address] [place] [address] Licensed Practical Nurse Family Medicine 08/24/23 Sand Drier Relationship Specialty Start Date End Date Jeevan Bertrand MD [address] [place] [address] PCP - Patrick MA 02/10/21 Jeevan Bertrand MD [address] [place] [address] PCP - General Internal Medicine 06/17/22ThuJoesphLala stack LPN [address] [place] [address] Licensed Practical Nurse Family Medicine 08/24/23 Sand Drier Relationship Specialty Start Date End Date Jeevan Bertrand MD [address] [place] [address] PCP - Patrick HORAN 02/10/21 Jeevan Bertrand MD [address] [place] [address] PCP - General Internal Medicine 06/17/22 Anamika Paz LPN 04/29/24 Sand Drier Relationship Specialty Start Date End Date Jeevan Bertrand MD [address] [place] [address] PCP - Patrick HORAN 02/10/21 Jeevan Bertrand MD [address] [place] [address] PCP - General Internal Medicine 06/17/22 Anamika Paz LPN 04/29/24 Sand Drier Relationship Specialty Start Date End Date Jeevan Bertrand MD [address] [place] [address] PCP - Patrick HORAN 02/10/21 Jeevan Bertrand MD [address] [place] [address] PCP - General Internal Medicine 06/17/22 Anamika Paz LPN 04/29/24 Reason for Visit (unrecogniz ed section and content) Reason Comments Post-op Sp BMT, Nasal Endo @ [facility] on 08/31 FOR RECORDS PERTAINING TO PATIENTS [...] BE BASED ON THE PRIMARY CLINICAL RECORDS. [employer] provides no warranty or guarantee of the accuracy or completeness of information in this document.
== END 2024-09-01 10:00 | disposition home or self-care (01) ==
LOC: CT 09:59
PROVIDERS: PCP Internal Medicine; Visit Provider Nurse Practitioner Family
DX: F17.210 Nicotine dependence, cigarettes, uncomplicated (principal)
CPT/HCPCS: 71271